=== PATIENT | male | born 1955 | race Caucasian/White ===

== ENCOUNTER → 2017-11-28 | Outpatient (CLI) | payer OTHER ==
[~2017-11-28] MED LIST: COZAAR 50 MG TA50 M2 PO; DICLOFENAC SODI75 MG PO; KLOR-CON 1010 MEQ PO; LIORESAL 10 MG10 MG PO; NABUMETONE 750750 M1 PO; NEURONTIN600 MG PO; PAXIL10 MG PO
--- NOTE | 2017-12-07 09:00 | PAINCON ---
[place] [address] PAIN MANAGEMENT CONSULTATION Name: LINDARODOLFO L Room: [facility]#: [id number] Admission: 11/28/17 Attend Phys: Eleazar Corona DO Discharge: Date of : 57 Report #: [id number] THIS REPORT FOR: //name// CC: Eleazar Elias DATE OF SERVICE: 11/28/2017 REFERRING PHYSICIAN: Dr. Akash Elias CHIEF COMPLAINT: Low back pain. HISTORY OF PRESENT ILLNESS: As you know, the patient is a 61-year-old male with longstanding history of low back pain that is chronic in nature. He has intermittent lumbar radicular symptoms that present with activities such as standing, sitting, climbing stairs, lifting and bending, improves with medications, heat and cold compresses. We have discussed treatment options in the past, which would include medication management, physical therapy with core strengthening and weight loss. We discussed epidural injections, spinal cord stimulator therapy and surgical options. The patient chose to continue with medication management. He returns today with pain level of 4-5/10. He wishes to discuss continuation of this therapy and possible adjustments in treatment to help ongoing pain issues and his difficulty with sleep in the evening hours. ALLERGIES: No known drug allergies. CURRENT MEDICATIONS: Baclofen 10 mg 3 times a day for muscle spasms, diclofenac sodium 75 mg 3 times a day with meals for nonsteroidal anti-inflammatory activity, losartan 500 mg twice a day, paroxetine 20 mg per day and potassium chloride 10 mEq p.o. q. day. SOCIAL HISTORY: The patient continues to smoke. Denies IV or illicit drug use. Denies any chronic alcohol use. He is retired. He is unaccompanied today. IMAGING: No new imaging available. PHYSICAL EXAMINATION: VITAL SIGNS: Blood pressure 132/71, pulse 66, respiratory rate 16, unlabored. The patient 92% on room air, current temperature 97.9 degrees Fahrenheit, height 6 feet tall, weight 293.4 pounds and BMI calculated 39.7. GENERAL: Well-developed, well-nourished, well-hydrated exogenously obese 61-year-old male. He appears older than stated age, placing current pain score of 4-5/10. HEENT: Normocephalic and atraumatic. Pupils are equal, round and reactive to light[place] [address] PAIN MANAGEMENT CONSULTATION Name: RODOLFO MCKEON Room: [facility]#: [id number] Admission: 11/28/17 Attend Phys: Eleazar Corona DO Discharge: Date of : 57 Report #: [id number] EXTREMITIES: Show no clubbing, no cyanosis and no edema. MUSCULOSKELETAL: Seated straight leg raising negative. Supine straight leg raising mildly positive on right. Danette's test negative. Modified Gaenslen's positive for axial low back pain. Ankle clonus negative. ASSESSMENT: 1. Symptomatic lumbar radiculopathy. 2. Significant lumbosacral spondylosis with radicular symptoms. 3. Lumbar degeneration. 4. Exogenous obesity. 5. Tobacco habituation. 6. Chronic intractable pain. PLAN: 1. The patient has returned today in followup visit where we have discussed at length his treatment options. The patient does have periodic radicular symptoms for which he might see improvement with treatment such as physical therapy, stretching exercise, core strengthening. We also discussed the effects of tobacco smoke on chronic pain and he needs to discontinue this activity as well. This will improve the symptoms he is experiencing on a daily basis. This in conjunction with physical therapy would provide good and prolonged benefit. We discussed adjustments in medication with the addition of a neuropathic pain medication to help for intermittent chronic radicular symptoms. We also discussed surgical options. After reviewing risks and benefits of all proposed treatment options, the patient chose to begin with changes in medical therapy. 2. The patient will be started on gabapentin. We will start him at the 600 mg dose at night. He will continue this consistently. He is to watch for side effects of somnolence, decrease in mental acuity, disorientation and confusion. I recommend he take the medication about an hour before bedtime. This will not only help with controlling neuropathic pain, but should improve his sleep. He was given this prescription with five refills. 3. The patient was provided a prescription of baclofen 10 mg dose 1 tab p.o. t.i.d. I have given the patient #90 tablets, 5 refills, 6 months' worth of medication. 4. The patient was provided prescription of diclofenac 75 mg dose 1 tab p.o. t.i.d. with meals, #90, 5 refills. 5. We will see the patient back in followup visit in about 6 months for medication management, earlier if he wishes to look towards interventional treatment such as epidural injections and review for possible surgical treatment. <ELECTRONICALLY SIGNED> By: Eleazar Corona DO 12/07/17 0900 0913 [id number] Corona DO /nt
== END ==
LOC: M.PC 01:19
DX: M54.16 Radiculopathy, lumbar region (principal); M47.897 Other spondylosis, lumbosacral region; E66.09 Other obesity due to excess calories; G89.29 Other chronic pain; F17.200 Nicotine dependence, unspecified, uncomplicated

== ENCOUNTER → 2018-06-01 | Outpatient (CLI) | payer OTHER ==
--- NOTE | 2018-06-07 14:16 | PAINCON ---
[address] [address] PAIN MANAGEMENT CONSULTATION Name: RODOLFO MCKEON [id number] Admission: 06/01/18 Attend Phys: Alyson Barajas MD Discharge: Date of : 57 Report #: [id number] THIS REPORT FOR: //name// CC: Alyson Elias DATE OF SERVICE: 06/05/2018 CHIEF COMPLAINT: Lumbar radicular pain. HISTORY OF PRESENT ILLNESS: The patient is a 62-year-old gentleman who has been followed in the pain clinic by Dr. Eleazar Corona. This is my first visit with him. He states that he has a history of chronic neck as well as some low back pain. He has noted some worsening of his pain in the lumbar area at this juncture. Pain today is in his low back, neck, hips and low back pain is most problematic. Rates his pain as a 3/10. He feels that his medications of gabapentin, diclofenac and baclofen, continued to be helpful. Pain is exacerbated with certain activities such as change in temperature, walking, sitting, standing, climbing stairs, lifting and bending though this medication along with heat can be helpful. He has had pain, which has been problematic for greater than 15 years. Note has been made of some arthritic changes in the cervical and in the lumbar region. He has undergone epidural steroid injections in the past and gleaned benefits from that. At this juncture, he feels his medications are working reasonably well and was returned to the pain clinic for a renewal of his medications. ALLERGIES: No known drug allergies. CURRENT MEDICATIONS: Baclofen 10 mg t.i.d., Voltaren 75 mg t.i.d., Cozaar 50 mg total of 100 mg daily, Paxil 10 mg, a total of 20 mg daily, potassium 10 mEq. PAST MEDICAL HISTORY: Hypertension, depression, chronic axial back pain. PAST SURGICAL HISTORY: Right knee surgery, cyst on right knee; crust finger, bilateral carpal tunnel releases. SOCIAL HISTORY: [employer]. REVIEW OF SYSTEMS: Frequent recurring headaches, hearing loss with tinnitus, frequent urination, nocturia, incontinence and dribbling of urine. Numbness and tingling sensation in the upper extremities periodically, neck pain, low back pain, depression, hypertension, tobacco habituation. PAIN CLINIC ASSESSMENT: 1. History of osteoarthritis. The [place] [address] PAIN MANAGEMENT CONSULTATION Name: RODOLFO MCKEON Room: [facility]#: [id number] Admission: 06/01/18 Attend Phys: Alyson Barajas MD Discharge: Date of : 57 Report #: [id number] 2. Height 6 feet, weight 301 pounds, BMI is 40. 3. Vital Signs: Blood pressure 140/81, heart rate 65, respiratory rate 16, room air saturation 98%, temperature was 98 and the saturation was 92%. Pain intensity judged as 2-3/10. 4. Fall risk. The patient has not fallen in the last 3 months. 5. Blood thinner. The patient is not on a blood thinning medication. 5. Hypertension. The patient is being treated for hypertension. 6. Opioid therapy greater than 6 weeks. The patient receives his medications from the [facility]. 7. Risk assessment tool. 8. Functional assessment tool. 9. Recreational drug use. The patient denies use of recreational drugs. 10. Tobacco: The patient states that he stopped smoking 9 days ago. Has a 45-year history of smoking, smokes 1-1/2 packs of cigarettes per day. Alcohol use beer on the weekends. PHYSICAL EXAMINATION: GENERAL: The patient is well developed, somewhat obese white male, appears his stated age. He is alert and oriented x 3. Affect is appropriate. Speech is fluent. HEENT: Normocephalic, atraumatic. Extraocular eye muscles intact. Sclerae are nonicteric. Mucous membranes are moist. NECK: Without JVD or adenopathy. LUNGS: Clear to auscultation. ABDOMEN: Soft, obese, nondistended. Upper extremity muscle strength is judged to be 5/5 for the major muscle groups. MUSCULOSKELETAL: Without significant scoliosis, kyphosis or lordosis. The patient does have some pain in the axillary area and low back area. Flexion and extension some intensifies the pain somewhat. There is palpable tenderness in the paraspinous muscle area of the lumbar spine. ASSESSMENT: 1. History of lumbosacral spondylosis without myelopathy. 2. Displacement of lumbar intervertebral disk without myelopathy. 3. Cervical spondylosis without myelopathy. 4. Mild cervical spinal stenosis. 5. Myofascial pain syndrome. 6. Muscle spasm of the cervical and lumbar regions. 7. Chronic intractable pain. 8. Some depression secondary to his finding out that she has lung cancer. The patient has had a right pneumonectomy. Undergoing chemotherapy, had some problems with congestive heart failure. RECOMMENDATIONS: We discussed treatment options with the patient. At this juncture, we will continue with his current medical regimen of baclofen 10 mg 1 p.o. t.i.d., gabapentin 600 mg 1 p.o. daily. The patient will call us if he has [address] [place] [address] PAIN MANAGEMENT CONSULTATION Name: LINDARODOLFO L Room: [facility]#: [id number] Admission: 06/01/18 Attend Phys: Alyson Barajas MD Discharge: Date of : 57 Report #: [id number] any problems with his medications. Hopefully, things continue to go well for his . We will continue to follow up with the patient on an outpatient basis in the pain clinic. We would like to thank you for letting us participate in his care. We hope he continues to improve. <ELECTRONICALLY SIGNED> By: Alyson Barajas MD 06/07/18 1416 [id number] [id number]. Osmani Barajas MD /nt
== END ==
LOC: M.PC 05-16 09:00
DX: M47.812 Spondylosis without myelopathy or radiculopathy, cervical region (principal); M51.26 Other intervertebral disc displacement, lumbar region; M48.02 Spinal stenosis, cervical region; G89.4 Chronic pain syndrome; M62.838 Other muscle spasm

== ENCOUNTER → 2018-11-16 | Outpatient (CLI) | payer OTHER ==
--- NOTE | ~2018-11-16 | PAINCON ---
[address] [address] PAIN MANAGEMENT CONSULTATION Name: RODOLFO MCKEON [facility] [id number] Admission: 11/16/18 Attend Phys: Alyson Barajas MD Discharge: Date of : 57 Report #: [id number] THIS REPORT FOR: //name// CC: Alyson Elias DATE OF SERVICE: 11/16/2018 HISTORY: The patient is a 62-year-old gentleman who has been seen in the pain clinic with history of lumbar radiculopathy. He has a history of chronic neck pain as well as low back pain. Notes that the pain is worsened. At this juncture, because of the cold weather, we are experiencing. He has noticed that his back pain improves when he wears a brace prior to activity such as bending and lifting. He feels that his medications overall are working reasonably well. He has been using gabapentin. States that the medication gabapentin was given to him for sleep. Has not noticed any problems with sleep and at this point does not feel that he needs to take that medication. Still has some at home at this juncture, feels that the diclofenac and baclofen continue to be quite helpful. He feels that the steroid combination at this juncture. He notes that the cold weather exacerbate his ability to get things done. Walking, standing, sitting, climbing stairs, lifting, bending are more problematic at this point. He has had problems with chronic pain for the leg greater part of 15 years. He has undergone epidural steroid injections. He does not feel that he needs an injection at this juncture. ALLERGIES: No known drug allergies. CURRENT MEDICATIONS: Baclofen 10 mg 1 p.o. t.i.d., Voltaren 75 mg t.i.d., Cozaar 50 mg total 100 mg daily, Paxil 10 mg, total of 20 mg, Paxil daily, potassium 10 mEq. PAIN CLINIC ASSESSMENT/PQRS: 1. The patient has a history of spurs. He is not being treated for rheumatoid arthritis. 2. Height 6 feet 0, weight 297 pounds, BMI is 40. 3. Vital signs: Blood pressure 136/82, heart rate 68, respiratory rate 18, room air saturation is 92%. Temperature 98.4. Pain intensity 3-10. 4. Fall history: The patient has not fallen in the last 3 months. 5. Blood thinner. The patient is not on a blood thinning medication. 6. Hypertension. The patient is being treated for hypertension. 7. Opioid greater than 6 weeks. The patient is not taking opioid medications. He does receive medications from the pain clinic to help moderate pain. 8. Risk assessment tool, low for opioid use. 9. Recreational drug use. The patient denies use of recreational drugs. 10. Tobacco: The patient has a 45-year smoking history. Smokes half packs of cigarettes per day, down to 1 pack per day. [place] [address] PAIN MANAGEMENT CONSULTATION Name: RODOLFO MCKEON Room: [facility]#: [id number] Admission: 11/16/18 Attend Phys: Alyson Barajas MD Discharge: Date of : 57 Report #: [id number] smoking cessation with the patient 11. Alcohol: The patient denies other than use of some beer on the weekend. PHYSICAL EXAMINATION: GENERAL: The patient is a well-developed, well-nourished white male. Appears his stated age. He is somewhat obese. Alert and oriented x3. Speech is fluent. HEAD, EYES, EARS, NOSE, AND THROAT: Normocephalic, atraumatic. Extraocular eye muscles intact. Sclerae nonicteric. Mucous membranes are moist. NECK: Without adenopathy or JVD. LUNGS: The patient has some cough and congestion. ABDOMEN: Nontender, obese. EXTREMITIES: Upper extremity muscle strength is judged to be 5/5 for the major muscle groups. MUSCULOSKELETAL: Without significant scoliosis, kyphosis or lordosis. The patient has some pain with flexion and extension. Has some pain in the low back areas. Has some paraspinous muscle discomfort as well. ASSESSMENT: 1. History of lumbosacral spondylosis without myelopathy. Displacement of lumbar intervertebral disk without myelopathy. 2. Cervical spondylosis without myelopathy. 3. Cervical spinal stenosis. 4. Myofascial pain. 5. Muscle spasms of cervical and lumbar regions. 6. Chronic intractable pain. 7. Depression secondary to his finding out that she has lung cancer. RECOMMENDATION: The patient feels that his medications of baclofen and diclofenac are helpful. Feels that this patch the right combination. Does not feel the gabapentin is providing much benefit. At this juncture, he would like to discontinue it. He has not been taking the medication, has had no complications from withdrawal. He has returned and would like his medications renewed. A script for his medications of baclofen 10 mg 1 p.o. t.i.d. as well as diclofenac 75 mg have been written with 5 refills. The patient will follow up in about 6 months. We would like to thank you for letting us to participate in his care. He will call us if he has any concerns. By: [id number]. Osmani Barajas MD /ZHANG
== END ==
LOC: M.PC 10:20
DX: M47.897 Other spondylosis, lumbosacral region (principal); M47.892 Other spondylosis, cervical region; M48.02 Spinal stenosis, cervical region; M62.838 Other muscle spasm; F32.9 Major depressive disorder, single episode, unspecified; G89.4 Chronic pain syndrome

== ENCOUNTER → 2019-05-03 | Outpatient (CLI) | payer OTHER ==
[~2019-05-03] MED LIST changes: +AMITRIPTYLINE H10 M3 PO
--- NOTE | ~2019-05-03 | PAINCON ---
[address] [address] PAIN MANAGEMENT CONSULTATION Name: LINDARODOLFO L Room: [facility] Nabor#: [id number] Admission: 05/03/19 Attend Phys: Alyson Barajas MD Discharge: Date of : 57 Report #: [id number] THIS REPORT FOR: //name// CC: Alyson Elias DATE OF SERVICE: 05/03/2019 CHIEF COMPLAINT: Here for medication renewal. HISTORY: The patient is a 63-year-old gentleman who has been followed in the pain clinic because of chronic pain. He has a history of lumbar radiculopathy. He has chronic pain involving his neck as well as his back. He feels that his current medical regimen of baclofen and Voltaren are beneficial. He does not regularly take gabapentin. He states that he was taking this medication to help with the pain and to help with sleep. He is still having poor sleep. He declines use of additional gabapentin at this point secondary to poor efficacy with helping him with his sleep. He has had no complications from his medications. He has returned today with a desire to have his medications renewed. He feels that the baclofen is helpful and the Voltaren medication is beneficial and would like to continue with those with these two medications. He notes that his pain is worse with activity, walking, sitting, standing, climbing stairs, lifting and bending. He notes that medication as well as ____ can be helpful. He states that he has had chronic pain in his legs for greater than 15 years. He has undergone epidural steroid injections. ALLERGIES: No known drug allergies. CURRENT MEDICATIONS: Baclofen 10 mg 1 p.o. t.i.d., Voltaren 75 mg t.i.d., Cozaar 50 mg, a total 100 mg daily; Paxil 10 mg, a total of 20 mg; potassium and the patient had used gabapentin. PAIN CLINIC ASSESSMENT/PQRS: 1. The patient has a history of bone spurs. He has not been treated for rheumatoid arthritis. 2. Height 6 feet 0 inches, weight 308 pounds, BMI is 42. 3. Vital Signs: Blood pressure 146/82, heart rate 71, respiratory rate 16, room air saturation 94%, temperature is 98. 4. Pain intensity 10. 5. Fall history: The patient has not fallen in the last 3 months. 6. Blood thinner. The patient is not on a blood thinning medication. 7. Recreational drug use. The patient denies use of recreational drugs. 8. Tobacco: The patient smokes cigarettes, has smoked for the last 45 years. Discussed the benefits of smoking cessation with the patient. 9. Alcohol. The patient denies use of alcohol, but drinks [place] [address] PAIN MANAGEMENT CONSULTATION Name: SANANORBERTORODOLFO LOGAN Room: [facility]#: [id number] Admission: 05/03/19 Attend Phys: Alyson Barajas MD Discharge: Date of : 57 Report #: [id number] PHYSICAL EXAMINATION: GENERAL: The patient is a well-developed, well-nourished white male. Appears his stated age. He is alert and oriented x 3. Affect is appropriate, somewhat obese. HEENT: Normocephalic, atraumatic. Extraocular eye muscles intact. Sclerae nonicteric. Mucous membranes are moist. NECK: Without adenopathy or JVD. LUNGS: Ronit less congestion today. ABDOMEN: Nontender. EXTREMITIES: Upper extremity muscle strength is judged to be 5/5 for the major muscle groups in the upper extremity. MUSCULOSKELETAL: Without significant scoliosis, kyphosis or lordosis. The patient has some pain in flexion and extension. He has pain in the lower portion of his back. ASSESSMENT: 1. History of lumbosacral spondylosis without myelopathy. 2. Displacement of lumbar intervertebral disc without myelopathy. 3. Cervical spondylosis without myelopathy. 4. Cervical spinal stenosis. 5. Myofascial pain. 6. Muscle spasm of the cervical and lumbar regions. 7. Chronic intractable pain. 8. Depression secondary to finding out that his has lung cancer. RECOMMENDATIONS: We discussed treatment options with the patient. At this juncture, we will continue with his medications. He states that he is continuing to have some pain or some difficulty with sleeping. We discussed the benefits of Elavil. This medication can be helpful for some days. The patient is to increase sleep as well as to be effective in helping with pain control. We will have the patient start at a low dose of 10 mg. He will take this medication for 3 days. If he notes that he is not having any improvement in his sleep, he will then take 2 tablets b.i.d. for about 5 days. If he is not having any problems with it, he will then increase it to 1 tablet p.o. t.i.d. Hopefully, the patient will find that these medications are helpful. We will then call and the script for him in the future should he need it. A script for his other medications have been written. He will continue with baclofen 10 mg 1 p.o. t.i.d. as well as Voltaren 75 mg 1 p.o. t.i.d. with meals. We would like to thank you for letting us participate in his care. We hope he continues to improve. By: [id number]. Osmani Barajas MD /nt
== END ==
LOC: M.PC 05:01
DX: Z76.0 Encounter for issue of repeat prescription (principal); M47.812 Spondylosis without myelopathy or radiculopathy, cervical region; M48.02 Spinal stenosis, cervical region; G89.4 Chronic pain syndrome; M51.26 Other intervertebral disc displacement, lumbar region; F32.9 Major depressive disorder, single episode, unspecified; Z79.899 Other long term (current) drug therapy

== ENCOUNTER → 2019-10-18 | Outpatient (CLI) | payer OTHER ==
--- NOTE | 2019-10-24 13:30 | PAINCON ---
[address] [address] PAIN MANAGEMENT CONSULTATION Name: LINDARODOLFO L Room: [facility]#: [id number] Admission: 10/18/19 Attend Phys: Alyson Barajas MD Discharge: Date of : 57 Report #: [id number] THIS REPORT FOR: //name// CC: Alyson Elias DATE OF SERVICE: 10/18/2019 CHIEF COMPLAINT: Low back pain as well as pain in the neck and some arm trouble. HISTORY: The patient is a 63-year-old gentleman who has been followed in the pain clinic because of chronic pain. He has a history of lumbar radiculopathy. He has had pain in his neck. Does have pain in his back. He finds that his current medical regimen continues to be helpful. He would like to have the medications renewed at this juncture. He complains of pain in his hips bilaterally. Has some pain in his knees. He has noted that the weather pattern has changed. It is about 30 degrees outside. He has noticed an increase in pain and discomfort. He finds that the Voltaren gel and baclofen continue to be helpful. He would like to have a 6-month renewal of his medications. He would like to get them in 90-day prescriptions. He notes that the pain is worse when he is walking with prolonged standing, bending and lifting. Feels that being stooped over his worst position. Does continue to smoke cigarettes. He has had epidural steroid injections in the past. His pain has been problematic for greater than 15 years. ALLERGIES: No known drug allergies. CURRENT MEDICATIONS: Baclofen 10 mg 1 p.o. t.i.d., Voltaren 75 mg b.i.d., Cozaar 50 mg, total of 100 mg daily, Paxil 10 mg, total of 20 mg, potassium. PAIN CLINIC ASSESSMENT/PQRS: 1. The patient has history of bone spurs. He is not being treated for rheumatoid arthritis. 2. Height 6, 0 inches, weight 308 pounds, BMI is 42.3. 3. Blood pressure 119/84, heart rate 79, respiratory rate 16, room air saturation 98%. 4. Pain intensity 10. 5. Fall history: The patient has not fallen in the last 3 months. 6. Blood thinner. The patient is not on a blood thinning medication. 7. Hypertension. The patient is being treated for hypertension. 8. The patient is not on a blood thinner. 9. Opioids greater than 6 weeks. The patient is not on opioid regimen on a regular basis. 10. Functional assessment tool has been reviewed. 11. Recreational drug use: [place] [address] PAIN MANAGEMENT CONSULTATION Name: CRISTINEAllanCEDRICKRODOLFO Chloe Room: [facility]#: [id number] Admission: 10/18/19 Attend Phys: Alyson Barajas MD Discharge: Date of : 57 Report #: [id number] 12. Tobacco: The patient smokes 1 pack of cigarettes per day. We discussed the benefits of smoking cessation. 13. Alcohol. The patient occasionally drinks alcoholic beverages. PHYSICAL EXAMINATION: GENERAL: The patient is a well-developed, well-nourished white male. Appears somewhat older than his stated age. He is alert and oriented x 3. He is somewhat obese. HEAD, EYES, EARS, NOSE, AND THROAT: Normocephalic, atraumatic. Extraocular eye muscles intact. Sclerae nonicteric. Mucous membranes are moist. The patient does smell of tobacco. NECK: Without adenopathy or JVD. ABDOMEN: Nontender. EXTREMITIES: Upper extremity muscle strength judged to be 5/5 for the major muscle groups in the upper extremity MUSCULOSKELETAL: Without significant scoliosis, kyphosis or lordosis. Notes some pain with flexion and extension. IMPRESSION: 1. Lumbosacral spondylosis without myelopathy. 2. Displacement of intervertebral disk without myelopathy. 3. Cervical spinal stenosis. 4. Myofascial pain. 5. Muscle spasms of the cervical spine and lumbar spine. 6. Chronic intractable pain. 7. 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 RECOMMENDATIONS: We discussed treatment options with the patient. Risks and benefits of opioid medications have been discussed. The patient is aware that opioid medications can be problematic in certain patients. States that he is not using opioid medications on a regular basis. He feels that the amitriptyline medication, which he had taken cause some increased sedation. He does have some at home to take if he needs it, but does not feel that he needs to take it on a regular basis. He feels that the baclofen medication is helpful with muscle spasms. He also feels that the Voltaren 75 mg 1 p.o. t.i.d. is helpful. States that he is not having any problems with his GI tract. We discussed the problems with aspirin type medications. They can cause some GI problems as well as some problems with his kidneys. Overall, he feels that things are going reasonably well and he would like to continue with his medications. A script for Voltaren 75 mg 1 p.o. t.i.d. have been written. He has been given a script for 90-day supply with one refill. He will also continue with baclofen 10 mg 1 p.o. t.i.d. 270 tablets have been prescribed with 1 refill. He will call in the future [place] [address] PAIN MANAGEMENT CONSULTATION Name: RODOLFO MCKEON Room: [facility]#: [id number] Admission: 10/18/19 Attend Phys: Alyson Barajas MD Discharge: Date of : 57 Report #: [id number] We would like to thank you for letting us to participate in his care. We hope he continues to improve. <ELECTRONICALLY SIGNED> By: Alyson Barajas MD 10/24/19 1330 1414 [id number]. Osmani Barajas MD /[facility]
== END ==
LOC: M.PC 05:25
DX: M47.817 Spondylosis without myelopathy or radiculopathy, lumbosacral region (principal); M51.36 Other intervertebral disc degeneration, lumbar region; M79.18 Myalgia, other site; G89.4 Chronic pain syndrome; F32.9 Major depressive disorder, single episode, unspecified

== ENCOUNTER → 2020-04-03 | Outpatient (CLI) | payer OTHER ==
--- NOTE | ~2020-04-03 | PAINCON ---
[address] [address] PAIN MANAGEMENT CONSULTATION Name: RODOLFO MCKEON Room: [facility]#: [id number] Admission: 04/03/20 Attend Phys: Alyson Barajas MD Discharge: Date of : 57 Report #: [id number] THIS REPORT FOR: //name// cc: Akash Elias Steve T. DO ~ THIS REPORT FOR: //name// CC: Alyson Elias DO DATE OF SERVICE: 04/03/2020 CHIEF COMPLAINT: Lumbar back pain with some neck and arm pain. HISTORY: The patient is a 64-year-old gentleman who has been followed in the Pain Clinic. He suffers from lumbar radiculopathy. He also has neck and back pain. He finds his medications are helpful. He has pain in his hips bilaterally. He also has pain in his knees. He notes worsening of pain when the weather pattern becomes more problematic. He has returned today for renewal of his medications. He rates his pain as a 5/10. It involves his low back area. He does sit in a recliner. He notes some burning in the anterior portion of his thigh. He is limited in his ability to bend over because of the pain. ALLERGIES: No known drug allergies. CURRENT MEDICATIONS: Baclofen 10 mg 1 p.o. t.i.d., Voltaren 75 mg b.i.d., Cozaar ___ mg daily, Paxil 100 mg, potassium 20 mEq. PAIN CLINIC ASSESSMENT/PQRS: 1. The patient has history of bone spurs. He is not being treated for rheumatoid arthritis. 2. Height 6 feet 0, weight 309 pounds, BMI is 42. 3. Blood pressure 120/85, heart rate 80, respiratory rate 18, room air saturation 98%. 4. Pain intensity, 5/10. 5. Fall history: The patient has not fallen in the last 3 months. 6. Blood thinner. The patient is not on a blood thinning medication. 7. Hypertension. The patient is being treated for hypertension. 8. Opioids greater than 6 weeks. The patient receives medications from the Pain Clinic. 9. Functional assessment tool reviewed. 10. Recreational drug use. The patient denies. 11. Tobacco: The patient smokes 1 pack of cigarettes per day. 12. Alcohol. The patient occasionally [place] [address] PAIN MANAGEMENT CONSULTATION Name: RODOLFO MCKEON Room: [facility]#: [id number] Admission: 04/03/20 Attend Phys: Alyson Barajas MD Discharge: Date of : 57 Report #: [id number] PHYSICAL EXAMINATION: GENERAL: The patient is a well-developed, well-nourished white male. Appears his stated age. He is alert and oriented x 3. His affect is appropriate. Speech is fluent. He is somewhat obese. HEENT: Normocephalic, atraumatic. Extraocular eye muscles intact. Sclerae nonicteric. Mucus membranes are moist. The patient does smell of tobacco. NECK: Without adenopathy or JVD. ABDOMEN: Nontender. EXTREMITIES: Upper extremity muscle strength is judged to be 5/5 for the major muscle groups in the upper extremity. MUSCULOSKELETAL: Without significant scoliosis, kyphosis or lordosis. The patient does complain of pain and discomfort in the low back area, which is exacerbated with sitting and notes a burning and discomfort in the anterior thigh. IMPRESSION: 1. Lumbosacral spondylosis without myelopathy. 2. Displacement of intervertebral disk without myelopathy. 3. Cervical spinal stenosis. 4. Myofascial pain. 5. Muscle spasm of the cervical spine and lumbar spine. 6. Chronic intractable pain. 7. 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 RECOMMENDATIONS: We discussed treatment options with the patient. At this juncture, we will continue with his medications. He has taken the medication as prescribed. He is not having any complications from its use. We will continue with his medication. The patient states that he has been given a request to sit on a Jury. At this point, he feels that he is unable to do this. He does have spinal stenosis. This makes him unable to sit for any prolonged period of time. I think that it would be a difficult activity for the patient to participating in. We will continue with his medications. A script for his medicines have been rewritten. He will continue with amitriptyline 10 mg p.r.n. He sometimes feels that this medication may make him a little groggy. He will also continue with baclofen 10 mg 1 p.o. t.i.d. as needed. He will continue with Voltaren tablets 75 mg 1 p.o. t.i.d. He will note his GI tract. Should he note some increased discomfort, he will stop taking the nonsteroidal anti-inflammatory medication. The patient will continue to monitor his well-being. We would like to thank you for letting us participate in his care. We hope he continues to improve. By: [id number]. Osmani Barajas MD /nt
== END ==
LOC: M.PC 10:30
DX: M47.817 Spondylosis without myelopathy or radiculopathy, lumbosacral region (principal); M48.02 Spinal stenosis, cervical region; M62.838 Other muscle spasm; G89.29 Other chronic pain; F32.9 Major depressive disorder, single episode, unspecified; F17.210 Nicotine dependence, cigarettes, uncomplicated; Z79.899 Other long term (current) drug therapy

== ENCOUNTER → 2020-10-16 | Outpatient (CLI) | payer OTHER ==
[~2020-10-16] MED LIST changes: +CLONAZEPAM 0.50.5 M1 PO
== END ==
LOC: M.PC 08:43
PROVIDERS: ATTEND Anesthesiology Pain Medicine
DX: Z76.0 Encounter for issue of repeat prescription (principal); M47.817 Spondylosis without myelopathy or radiculopathy, lumbosacral region; M48.02 Spinal stenosis, cervical region; G89.4 Chronic pain syndrome; F32.9 Major depressive disorder, single episode, unspecified; F41.9 Anxiety disorder, unspecified

== ENCOUNTER 2021-04-14 14:21 | Emergency (ER) | payer OTHER ==
[~2021-04-14] VITALS: Ht 182.9 cm; Wt 145.2 kg
[2021-04-14 14:58] LABS: ABSOLUTE BASOPHILS 0.1 thou/uL (0.0-0.2); ABSOLUTE EOSINOPHILS 0.2 thou/uL (0.0-0.7); ABSOLUTE LYMPHOCYTES 1.9 thou/uL (0.8-5.3); ABSOLUTE MONOCYTES 0.7 thou/uL (0.0-1.2); ABSOLUTE NEUTROPHILS 7.1 thou/uL (1.6-8.1); BASOPHILS 1.1 %; EOSINOPHILS 2.3 %; HEMATOCRIT 44.8 % (42.0-52.0); HEMOGLOBIN 15.4 gm/dL (14.0-18.0); LYMPHOCYTES 18.7 %; MCH 30.5 pg (26.0-34.0); MCHC 34.5 g/dL (28.0-37.0); MCV 88.6 fL (80.0-100.0); MONOCYTES 6.6 %; MPV 7.1 fl. (7.2-11.1); NUCLEATED RBCS 0 /100WBC; PLATELET COUNT* 323 thou/uL (150-400); POLYS 71.3 %; RBC 5.06 mil/uL (4.50-6.00); RDW-CV 13.8 % (10.5-14.5)
[2021-04-14 15:07] LABS: CALCIUM 9.1 mg/dL (8.5-10.1); POTASSIUM 4.3 mmol/L (3.5-5.1)
[2021-04-14 15:12] LABS: ALBUMIN 3.9 g/dL (3.4-5.0)
[2021-04-14] MEDS ORDERED: HYDROCODON-ACE1 EAC7 PO (16:01)
[2021-04-14] MEDS ORDERED: PREDNISONE 20 M20 M1 PO (16:08)
[2021-04-14 16:13] VITALS: BP 148/84
--- NOTE | 2021-04-15 14:13 | EKG ---
[place] [address] ELECTROCARDIOGRAM REPORT Name: SANACEDRICKRODOLFO Room: 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: GRANT : 1955 Requested By: Ronni Pete Order Number: [id number] MD: Quentin Sandoval Measurements Intervals [place] Rate: 70 P: 41 RI: 180 QRS: 65 QRSD: 150 T: 30 QT: 401 QTc: 433 Interpretive Statements Sinus rhythm Right bundle branch block No previous ECG available for comparison Electronically Signed On 04-15-2021 14:13:21 CDT by Quentin Sandoval [email or web address] <ELECTRONICALLY SIGNED> By: Quentin Sandoval MD, [facility] 04/15/21 1413 1525 1525 Quentin Sandoval MD, [facility] /EPI
[2021-04-16] MEDS ORDERED: DICLOFENAC SODI75 MG PO (09:08)
[2021-04-16] MEDS ORDERED: LIORESAL 10 MG10 MG PO (09:08)
[2021-04-16] MEDS ORDERED: HYDROCODON-ACE1 EAC7 PO (09:08)
== END 2021-04-14 16:14 | disposition home or self-care (01) ==
LOC: M.ERS 14:21
PROVIDERS: Family Medicine
DX: T14.8XXA Other injury of unspecified body region, initial encounter (principal); R55 Syncope and collapse; R05 Cough; R06.02 Shortness of breath; J44.9 Chronic obstructive pulmonary disease, unspecified; F17.200 Nicotine dependence, unspecified, uncomplicated; Z79.899 Other long term (current) drug therapy; V89.2XXA Person injured in unspecified motor-vehicle accident, traffic, initial encounter; Y93.I9 Activity, other involving external motion; Y92.488 Other paved roadways as the place of occurrence of the external cause; Y99.8 Other external cause status

== ENCOUNTER → 2021-04-16 | Outpatient (CLI) | payer OTHER ==
[~2021-04-16] MED LIST changes: +HYDROCODON-ACE1 EAC7 PO; +PREDNISONE 20 M20 M1 PO
== END ==
LOC: M.PC 08:28
PROVIDERS: ATTEND Anesthesiology Pain Medicine
DX: G89.4 Chronic pain syndrome (principal); M47.817 Spondylosis without myelopathy or radiculopathy, lumbosacral region; M48.02 Spinal stenosis, cervical region; M51.27 Other intervertebral disc displacement, lumbosacral region; F32.9 Major depressive disorder, single episode, unspecified; F41.9 Anxiety disorder, unspecified; Z79.891 Long term (current) use of opiate analgesic; Z79.899 Other long term (current) drug therapy

== ENCOUNTER → 2021-05-07 | Outpatient (CLI) | payer OTHER | LOC: M.PUL 05-05 14:00 | PROVIDERS: ATTEND Family Medicine | DX: J41.1 Mucopurulent chronic bronchitis (principal); I10 Essential (primary) hypertension; F32.9 Major depressive disorder, single episode, unspecified; Z68.41 Body mass index [BMI] 40.0-44.9, adult; Z72.0 Tobacco use ==

== ENCOUNTER → 2021-10-15 | Outpatient (CLI) | payer OTHER ==
[~2021-10-15] MED LIST changes: +PROAIR HFA8.5 GM INH
== END ==
LOC: M.PC 08:40
PROVIDERS: ATTEND Anesthesiology Pain Medicine
DX: M47.817 Spondylosis without myelopathy or radiculopathy, lumbosacral region (principal); M51.26 Other intervertebral disc displacement, lumbar region; M48.02 Spinal stenosis, cervical region; M79.18 Myalgia, other site; I10 Essential (primary) hypertension; G89.29 Other chronic pain; F34.89 Other specified persistent mood disorders; F41.9 Anxiety disorder, unspecified; Z79.899 Other long term (current) drug therapy